=== PATIENT | male | born 1990 | race African-American/Black ===

== ENCOUNTER 2021-01-30 06:36 | Emergency (ER) | payer MEDICAID ==
[~2021-01-30] VITALS: Ht 180.3 cm; Wt 136.4 kg
[2021-01-30] MEDS ORDERED: PALI156D IM (06:48)
[2021-01-30 07:01] VITALS: BP 109/64
[2021-01-30 08:12] LABS: INFLUENZA TYPE A NEGATIVE FOR TYPE A (NEGATIVE); INFLUENZA TYPE B NEGATIVE FOR TYPE B (NEGATIVE)
== END 2021-01-30 07:54 | disposition home or self-care (01) ==
LOC: EMS 06:41 → EDBD 06:41 → EMS 07:54
DX: B34.9 Viral infection, unspecified (principal); F20.9 Schizophrenia, unspecified; F17.210 Nicotine dependence, cigarettes, uncomplicated; Z79.899 Other long term (current) drug therapy; Z20.822 Contact with and (suspected) exposure to COVID-19
CPT/HCPCS: 87804; 99283; U0003